=== PATIENT | male | born 1970 ===

== ENCOUNTER 2017-04-30 17:22 | Emergency (ER) | payer OTHER ==
[2017-04-30 18:45] VITALS: BP 162/92; PULSE 77; RESP 16; TEMP 98; O2SAT 98
--- NOTE | 2017-04-30 19:18 | ED PDOC ---
Upper Extremity Pain/Injury Time Seen by Provider: 04/30/17 19:10 Chief Complaint (Nursing): Finger,Hand,&Wrist Chief Complaint (Provider): Left thumb and right rib pain History Per: Patient History/Exam Limitations: no limitations Onset/Duration Of Symptoms: Days (x1) Current Symptoms Are (Timing): Still Present Additional Complaint(s): Willard Jamil is a 46 y/o [id number] male who presents to the ER for evaluation of left thumb and right rib pain s/p falling today. Denies any head trauma or loss of consciousness. Patient states he was walking down stairs when he slipped, and fell onto the right side of his back. He attempted to grab onto the rail and jammed the left thumb during the process. PMD: None provided Past Medical History Reviewed: Historical Data, Nursing Documentation, Vital Signs Vital Signs: Last Vital Signs Temp 98.0 F 04/30/17 18:43 Pulse 77 04/30/17 18:43 Resp 16 04/30/17 18:43 BP 162/92 H 04/30/17 18:43 Pulse Ox 98 04/30/17 18:43 - Medical History PMH: No Chronic Diseases - Family History Family History: States: Unknown Family Hx - Social History Current smoker - smoking cessation education provided: Yes Alcohol: None Drugs: Denies - Home Medications Home Medications: Ambulatory Orders Medication Instructions Recorded Diphenhydramine Hydrochlorid 25 mg PO Q6 PRN #1 packet 10/06/14 [Benadryl] Prednisone 50 mg PO DAILY #6 tab 10/06/14 Albuterol HFA [Ventolin HFA 90 2 puff IH [id number] PRN #30 puff 01/19/15 mcg/actuation (8 g)] Azithromycin [Zithromax Z-Deuce] 250 mg PO DAILY #1 tab 01/19/15 Naproxen 1 tab PO Q12 PRN #14 tab 04/30/17 oxyCODONE/Acetaminophen [Percocet 1 ea PO Q6 PRN #8 tab 04/30/17 5/325 mg Tab] - Allergies Allergies/Adverse Reactions: Allergies Allergy/AdvReac Type Severity Reaction Status Date / Time peanut Allergy ITCHING Verified 04/30/17 18:43 Review of Systems ROS Statement: Except As Marked, All Systems Reviewed And Found Negative Cardiovascular: Positive for: Other (Right rib pain). Negative for: Chest Pain Respiratory: Negative for: Shortness of Breath Musculoskeletal: Positive for: Other (Left thumb pain) Neurological: Negative for: Weakness, Numbness Physical Exam - Reviewed Nursing Documentation Reviewed: Yes Vital Signs Reviewed: Yes - Physical Exam Appears: Positive for: Non-toxic, No Acute Distress Head Exam: Positive for: ATRAUMATIC, NORMAL INSPECTION (with abrasion to left side of face, which is an old work injury per patient), NORMOCEPHALIC Skin: Positive for: Normal Color, Warm, Dry Eye Exam: Positive for: EOMI, Normal appearance, PERRL Neck: Positive for: Normal, Painless ROM, Supple Cardiovascular/Chest: Positive for: Regular Rate, Rhythm, Other (Right chest wall tenderness). Negative for: Murmur Respiratory: Positive for: Normal Breath Sounds. Negative for: Accessory Muscle Use, Respiratory Distress Gastrointestinal/Abdominal: Positive for: Normal Exam, Soft. Negative for: Tenderness, Distended Back: Positive for: Normal Inspection. Negative for: Vertebral Tenderness Extremity: Positive for: Normal ROM (Able to flex and extend the left thumb; Exam limited due to pain), Capillary Refill (< 2 sec), Swelling (and tenderness at the base of the left thumb). Negative for: Tenderness (snuffbox tenderness) Neurologic/Psych: Positive for: Alert, Oriented (x3) - ECG O2 Sat by Pulse Oximetry: 98 (RA) Pulse Ox Interpretation: Normal - Progress ED Course And Treament: Patient provided with incentive spirometer and instructions from respiratory. Aluminum splint applied to left thumb. Patient is stable for discharge. Will d/ c with rx's for naproxen and percocet. Patient will f/u with PMD or clinic for further evaluation. There is agreement to discharge plan. Return if symptoms persist or worsen. Medical Decision Making Medical Decision Making: Time: 19:12 Initial Impression: 46 y/o male with left thumb and right rib pain s/p fall Initial Plan: * X-Ray Left Thumb * X-Ray Right Ribs & PA Chest * Pending reevaluation X-ray of thumb, viewed by me, is negative for fracture. X-ray of ribs/chest, viewed by me, (+) fracture. Scribe Attestation: Documented by Aisha Burris, acting as a scribe for Nacho Ortiz PA-C Provider Scribe Attestation: All medical record entries made by the Scribe were at my direction and personally dictated by me. I have reviewed the chart and agree that the record accurately reflects my personal performance of the history, physical exam, medical decision making, and the department course for this patient. I have also personally directed, reviewed, and agree with the discharge instructions and disposition. Disposition - Clinical Impression Clinical Impression: Thumb sprain, Rib injury - Patient ED Disposition Is Patient to be Admitted: No Counseled Patient/Family Regarding: Studies Performed, Diagnosis, Need For Followup, Rx Given - Disposition Referrals: [facility] [Outside] Fernando Sellers MD [Medical Doctor] - Disposition: Routine/Home Disposition Time: 20:33 Condition: FAIR Prescriptions: Naproxen 1 tab PO Q12 PRN #14 tab PRN Reason: Pain, Severe (8-10) oxyCODONE/Acetaminophen [Percocet 5/325 mg Tab] 1 ea PO Q6 PRN #8 tab PRN Reason: Pain, Severe (8-10) Instructions: Rib Fracture (ED), Finger Sprain (ED) Forms: [employer] (Amharic), [facility] ED School/Work Excuse - POA Present On Arrival: Falls Or Trauma
--- NOTE | 2017-05-01 10:15 | RAD ---
PROCEDURE: Left Thumb radiographs. HISTORY: THUMB INJURY COMPARISON: Left hand radiographs dated 06/18/2014. TECHNIQUE: AP radiograph of the left hand, as well as spot oblique and lateral images of thumb were obtained. FINDINGS: LEFT THUMB: No acute fracture. Sequelae of prior injury evident. Remainder of the left hand (as seen on the AP view) grossly unremarkable. JOINTS: Unremarkable. SOFT TISSUES: Normal. OTHER FINDINGS: None. IMPRESSION: No demonstrated acute fracture dislocation.
--- NOTE | 2017-05-01 10:26 | RAD ---
PROCEDURE: Radiographs of the Chest and Right Ribs. HISTORY: RIB INJURY COMPARISON: Chest radiograph dated 01/19/2015. TECHNIQUE: Frontal radiograph of the chest and multiple oblique radiographs of the right ribs were obtained. FINDINGS: RIGHT RIBS: Acute nondisplaced fractures of the right posterolateral 9th, 10th, 11th and 12th ribs. Old fractures of the right posterior lateral 3rd, 4th and 5th ribs. LUNGS: Clear. PLEURA: No pneumothorax or pleural fluid. CARDIOVASCULAR: Normal sized heart. No pulmonary vascular congestion. OTHER FINDINGS: None. IMPRESSION: Acute nondisplaced fractures of the right posterolateral 9th, 10th, 11th and 12th ribs. ER notification submitted electronically.
== END 2017-04-30 20:50 | disposition home or self-care (01) ==
LOC: H.ER 17:22
DX: S63.602A Unspecified sprain of left thumb, initial encounter (principal); S29.9XXA Unspecified injury of thorax, initial encounter; Y93.01 Activity, walking, marching and hiking; W10.9XXA Fall (on) (from) unspecified stairs and steps, initial encounter; Y92.89 Other specified places as the place of occurrence of the external cause; F17.200 Nicotine dependence, unspecified, uncomplicated

== ENCOUNTER 2017-11-10 12:53 | Emergency (ER) | payer OTHER ==
[2017-11-10 13:03] VITALS: TEMP 98; O2SAT 100; BMI 28.4
[2017-11-10] MEDS ORDERED: Hydrogen Peroxide 3% Soln (480ml) TP ONE (13:33)
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
[2017-11-10 14:29] VITALS: BP 145/87; PULSE 70; RESP 18
== END 2017-11-10 14:48 | disposition home or self-care (01) ==
LOC: H.ER 12:53
DX: Z48.02 Encounter for removal of sutures (principal)

== ENCOUNTER 2018-09-12 19:50 | Emergency (ER) | payer SELFPAY ==
[2018-09-12 19:51] VITALS: BMI 28.4
[2018-09-12 20:25] VITALS: BP 149/97; PULSE 85; RESP 18; TEMP 98.6; O2SAT 98
[2018-09-12] MEDS ORDERED: Tdap Vaccine 0.5 ml Vial (10-64 yrs) IM ONE ×2 (21:34→21:57)
[2018-09-12] MEDS ORDERED: Lidocaine 1% Inj (20ml) IJ ONE (21:34)
[2018-09-12] MEDS ORDERED: Povidone Iodine Topical 10% Sol ONE (21:47)
--- NOTE | 2018-09-12 22:19 | ED PDOC ---
Upper Extremity Pain/Injury Time Seen by Provider: 09/12/18 21:24 Chief Complaint (Nursing): Upper Extremity Problem/Injury Chief Complaint (Provider): finger laceration History Per: Patient History/Exam Limitations: no limitations Onset/Duration Of Symptoms: Hrs Current Symptoms Are (Timing): Still Present Severity: Mild Pain Scale Rating Of: 2 Additional History Per: Patient Additional Complaint(s): 47 year old male with no significant medical hx presents to the ED with right 5th digit lacertion to lateral aspect of the digit, sustained at approx 8pm after punching a glass. Patient denies pain to other digits, tetanus status unknown. Past Medical History Reviewed: Historical Data, Nursing Documentation, Vital Signs Vital Signs: Last Vital Signs Temp 98.6 F 09/12/18 20:23 Pulse 85 09/12/18 20:23 Resp 18 09/12/18 20:23 BP 149/97 H 09/12/18 20:23 Pulse Ox 98 09/12/18 20:23 RHONDA Report Viewed: No Primary Care Provider: FAMILY PROVIDER,NO - Medical History PMH: No Chronic Diseases - Surgical History Surgical History: No Surg Hx - Family History Family History: States: Unknown Family Hx - Immunization History Hx Tetanus Toxoid Vaccination: No Hx Influenza Vaccination: No Hx Pneumococcal Vaccination: No - Home Medications Home Medications: Ambulatory Orders Medication Instructions Recorded Diphenhydramine Hydrochlorid 25 mg PO Q6 PRN #1 packet 10/06/14 [Benadryl] Prednisone 50 mg PO DAILY #6 tab 10/06/14 Albuterol HFA [Ventolin HFA 90 2 puff IH [id number] PRN #30 puff 01/19/15 mcg/actuation (8 g)] Azithromycin [Zithromax Z-Deuce] 250 mg PO DAILY #1 tab 01/19/15 Naproxen 1 tab PO Q12 PRN #14 tab 04/30/17 oxyCODONE/Acetaminophen [Percocet 1 ea PO Q6 PRN #8 tab 04/30/17 5/325 mg Tab] Amoxicillin/Clavulanate [Augmentin 1 tab PO BID #7 tab 11/02/17 875 MG-125 MG] Cyclobenzaprine [Cyclobenzaprine 10 mg PO BID #15 tab 11/02/17 HCl] Ibuprofen [Motrin Tab] 600 mg PO Q6 #30 tab 11/02/17 Bacitracin Ointment [Bacitracin] 1 applic TOP BID #1 tube 11/10/17 - Allergies Allergies/Adverse Reactions: Allergies Allergy/AdvReac Type Severity Reaction Status Date / Time peanut Allergy ITCHING Verified 09/12/18 20:25 Review of Systems ROS Statement: Except As Marked, All Systems Reviewed And Found Negative Musculoskeletal: Positive for: Hand Pain (to right 5th digit ) Skin: Positive for: Other (laceration to rigth 5th digit ) Physical Exam - Reviewed Nursing Documentation Reviewed: Yes Vital Signs Reviewed: Yes - Physical Exam Appears: Positive for: Well, Non-toxic, No Acute Distress Head Exam: Positive for: ATRAUMATIC, NORMAL INSPECTION, NORMOCEPHALIC Skin: Positive for: Normal Color, Warm, DRY Eye Exam: Positive for: EOMI, Normal appearance, PERRL ENT: Positive for: Normal ENT Inspection Neck: Positive for: Normal, Painless ROM, Supple Cardiovascular/Chest: Positive for: Regular Rate, Rhythm Respiratory: Positive for: CNT, Normal Breath Sounds Pulses-Radial (L): 2+ Pulses-Radial (R): 2+ Gastrointestinal/Abdominal: Positive for: Normal Exam, Soft Back: Positive for: Normal Inspection Extremity: Positive for: Normal ROM, Capillary Refill (right hand digits cap refill <2 secs, shear, approx 2cm curved laceration, clean edges, <0.5 cm deep. ), Other (no other signs of injury noted to the hand. patient has good use of flex/ext tendons to all digit in the right hand. good rom of 5th digit without pain or discomfort. ) Neurological/Psych: Positive for: Awake, Alert, Normal Tone, Oriented - ECG O2 Sat by Pulse Oximetry: 98 Medical Decision Making Medical Decision Making: lidocaine 1% Tetanus Wound repair Bacitrin Patient stable for D/C home. Return in 7-10 days. for suture removal. Patient advised to maintain digit with dressing for 24-48 hrs. If redness, finger swelling fever develops return to ED. Motrin or Tylenol OTC as needed for pain. Patient states understanding and agrees with plan. Procedures - Time-Out Type of Procedure: laceration repair Site of Procedure: right 5th digit Correct Patient: Yes Correct Procedure: Yes PA/Tech: Clarita Mcneill APN - Laceration/Wound Repair Right Finger Wound Length (cm): 2 Anesthesia: 1% Lidocaine Volume Anesthetic (ccs): 1 Wound Debrided: moderate Wound Repaired With: Sutures Suture Size/Type: 5:0 Number of Sutures: 4 Layer Closure?: No Wound Complexity: Simple Sterile Dressing Applied?: Yes Splint Applied?: No Sling Applied?: No Progress: Patient tolerated Procedure well. During irrigation no fragments of glass noted. Disposition - Clinical Impression Clinical Impression: Finger laceration - Patient ED Disposition Is Patient to be Admitted: No Counseled Patient/Family Regarding: Diagnosis, Need For Followup - Disposition Referrals: [facility] [Outside] Disposition: Routine/Home Disposition Time: 22:17 Condition: GOOD Additional Instructions: Return to ED in 7-10 days for suture removal. Instructions: Laceration Repair, Laceration Repair With Stitches (DC) Print Language: GEORGIAN - POA Present On Arrival: None
== END 2018-09-12 22:30 | disposition home or self-care (01) ==
LOC: H.ER 19:50
DX: S61.216A Laceration without foreign body of right little finger without damage to nail, initial encounter (principal); W25.XXXA Contact with sharp glass, initial encounter; Z23 Encounter for immunization